=== PATIENT | female | born 1975 | race Caucasian/White ===

== ENCOUNTER 2025-04-07 14:54 | Emergency (ER) | payer OTHER ==
[~2025-04-07] VITALS: Ht 165.1 cm; Wt 78.0 kg
[2025-04-07] MEDS ORDERED: KETOROLAC TROMETHAMINE 30 MG INJ ONE (15:26)
[2025-04-07] MEDS: KETOROLAC TROMETHAMINE 30 MG INJ IM ONE (15:34)
[2025-04-07] MEDS ORDERED: IBUP-1955 PO (16:01)
[2025-04-07 16:51] VITALS: BP 151/87; O2SAT 98
== END 2025-04-07 16:52 | disposition home or self-care (01) ==
LOC: ER 14:54
DX: M54.50 Low back pain, unspecified (principal); E78.5 Hyperlipidemia, unspecified; W01.0XXA Fall on same level from slipping, tripping and stumbling without subsequent striking against object, initial encounter; Y93.89 Activity, other specified; Y92.89 Other specified places as the place of occurrence of the external cause; Y99.0 Civilian activity done for income or pay
CPT/HCPCS: 99283; 72100; 96372; J1885; A4606; A4663

== ENCOUNTER 2025-04-15 14:38 | Emergency (ER) | payer OTHER ==
[~2025-04-15] VITALS: Ht 165.1 cm; Wt 79.4 kg
[~2025-04-15 14:38] MED LIST: IBUP-1955 PO
[2025-04-15] MEDS ORDERED: NAPR-1009 PO (17:54)
[2025-04-15 18:17] VITALS: BP 125/73; O2SAT 98
== END 2025-04-15 18:17 | disposition home or self-care (01) ==
LOC: ER 14:38
DX: S63.592A Other specified sprain of left wrist, initial encounter (principal); E03.9 Hypothyroidism, unspecified; E78.5 Hyperlipidemia, unspecified; X50.0XXA Overexertion from strenuous movement or load, initial encounter; Y93.89 Activity, other specified; Y92.89 Other specified places as the place of occurrence of the external cause; Y99.0 Civilian activity done for income or pay
CPT/HCPCS: 73110; A4606; A4663

== ENCOUNTER 2025-09-02 19:28 | Emergency (ER) | payer OTHER ==
[~2025-09-02] VITALS: Ht 167.6 cm; Wt 82.6 kg
[~2025-09-02 19:28] MED LIST changes: +NAPR-1009 PO
[2025-09-02 23:00] LABS: PLATELET COUNT (AUTO) 300 K/uL (179-408); RED BLOOD CELL COUNT(AUTO) 4.69 MIL/uL (3.63-4.92); RED CELL DISTRIBUTION WIDTH 13.0 % (12.3-17.7); WHITE BLOOD COUNT (AUTO) 7.6 K/uL (3.8-11.8)
[2025-09-02 23:08] LABS: CREATININE 0.6 mg/dL (0.6-1.3); SODIUM SERUM 145.0 mmol/L (136-145); UREA NITROGEN, BLOOD 18.0 mg/dL (7-18)
[2025-09-02 23:14] LABS: ASPARTATE AMINOTRANSFERASE 23.0 U/L (15-37); TOTAL PROTEIN, SERUM 8.2 g/dL (6.4-8.2)
[2025-09-02] MEDS ORDERED: RIVAROXABAN 15 MG TABLET ONE (23:51)
[2025-09-03 00:10] VITALS: BP 129/75
[2025-09-03] MEDS: RIVAROXABAN 15 MG TABLET PO ONE (00:13)
[2025-09-03] MEDS ORDERED: RIVA15TA PO (00:44)
[2025-09-03 01:40] VITALS: BP 125/86; O2SAT 96
== END 2025-09-03 01:00 | disposition home or self-care (01) ==
LOC: ER 19:28
DX: I82.461 Acute embolism and thrombosis of right calf muscular vein (principal); Z79.01 Long term (current) use of anticoagulants; Z88.7 Allergy status to serum and vaccine
CPT/HCPCS: 36415; 85025; 85730; A4606; A4663